=== PATIENT | male | born 1985 | race Caucasian/White ===

== ENCOUNTER 2016-12-15 14:41 | Emergency (ER) | payer OTHER ==
--- NOTE | 2016-12-15 14:43 | PDOC ---
History of Present Illness <Robyn Agarwal - Last Filed: 12/15/16 15:36> - General History Source: Patient, Family Exam Limitations: No Limitations - History of Present Illness Initial Comments: 12/15/16 16:32 CHIEF COMPLAINT: Left ankle injury just prior to arrival HISTORY OF PRESENT ILLNESS: 31-year-old man with no significant past medical history was playing softball today. Another player slid into his left ankle, causing severe pain and swelling. Patient came immediately to the emergency department. He denies any other injuries. REVIEW OF SYSTEMS: No fever or chills Positive left ankle pain No head or neck injury No right leg or ankle pain <Miguel Patino - Last Filed: 12/15/16 16:44> - General Chief Complaint: Injury Stated Complaint: LEFT ANKLE PAIN Time Seen by Provider: 12/15/16 14:43 Past History <Robyn Agarwal - Last Filed: 12/15/16 15:36> - Past Medical History Diabetes: No <Miguel Patino - Last Filed: 12/15/16 16:44> - Past Medical History Allergies/Adverse Reactions: Allergies Allergy/AdvReac Type Severity Reaction Status Date / Time No Known Allergies Allergy Unverified 12/15/16 14:42 Home Medications: Ambulatory Orders Naproxen [Naprosyn -] 375 mg PO Q12H PRN #30 tablet 12/15/16 Oxycodone HCl/Acetaminophen [Percocet 5-325 mg Tablet] 1 - 2 tab PO Q4H PRN #20 tablet MDD 12 12/15/16 *Physical Exam - Vital Signs Last Vital Signs Temp Pulse Resp BP Pulse Ox 97.6 F 75 16 136/80 100 12/15/16 14:42 12/15/16 14:42 12/15/16 14:42 12/15/16 14:42 12/15/16 14:42 <Robyn Agarwal - Last Filed: 12/15/16 15:36> - Physical Exam Comments: 12/15/16 16:33 GENERAL: The patient is awake, alert, and fully oriented, in no acute distress. HEAD: Normal with no signs of trauma. EYES: Pupils equal, round and reactive to light, extraocular movements intact, sclera anicteric, conjunctiva clear. EXTREMITIES: There is swelling and tenderness at the left ankle, both medial and lateral. Skin is intact. Pulses are normal. Capillary refill is less than 2 seconds. Sensation is intact throughout. There is some tenderness of the proximal midfoot. NEUROLOGICAL: Normal speech, normal gait. PSYCH: Normal mood, normal affect. SKIN: Warm, Dry, normal turgor, no rashes or lesions noted. <Miguel Patino - Last Filed: 12/15/16 16:44> Procedures - Splinting Splint Location: Left: Ankle (sugar tong and posterior short leg splint applied) Pre-Proc Neuro Vasc Exam: normal Hand-Made Type: orthoglass Splint Type: Yes: Sugar Tong, Short Leg Ronny Bandage: yes, 4", 6" <Miguel Patino S - Last Filed: 12/15/16 16:44> ED Treatment Course - Medications Given in the ED: ED Medications Discontinued Medications Generic Name Dose Route Start Last Admin Trade Name Freq PRN Reason Stop Dose Admin Naproxen 375 mg 12/15/16 14:44 12/15/16 14:51 Naprosyn - PO 12/15/16 14:45 375 mg ONCE ONE Administration <Robyn Agarwal - Last Filed: 12/15/16 15:36> Medical Decision Making - Medical Decision Making 12/15/16 15:[address] Burk at [phone], awaiting call back. <Robyn Agarwal - Last Filed: 12/15/16 15:36> - Medical Decision Making 12/15/16 16:35 Patient presents with left ankle injury, examination with swelling and bimalleolar tenderness. X-rays of the left ankle show a Adams B type fibula fracture at the level of the syndesmosis extending upwards on the lateral side. There is some widening of the mortise joint suggesting joint instability. X-rays reviewed by me and then by the radiologist. Impression: Adams B/C left ankle injury. Mortise joint appears unstable. Patient will likely need ORIF. Plan: Call placed orthopedic surgery on-call, Dr. Burk responded. He advised splinting, ice, elevation, consultation in his office on Saturday with surgery to be planned. <Miguel Patino - Last Filed: 12/15/16 16:44> *DC/Admit/Observation/Transfer <Robyn Agarwal - Last Filed: 12/15/16 15:36> - Discharge Dispostion Admit: No <Miguel Patino - Last Filed: 12/15/16 16:44> Diagnosis at time of Disposition: Closed left fibular fracture Qualifiers: Encounter type: initial encounter Fibula location: lateral malleolus Fracture alignment: displaced Qualified Code(s): S82.62XA - Displaced fracture of lateral malleolus of left fibula, initial encounter for closed fracture - Discharge Dispostion Disposition: HOME Condition at time of disposition: Stable - Prescriptions Prescriptions: Naproxen [Naprosyn -] 375 mg PO Q12H PRN #30 tablet PRN Reason: Pain Oxycodone HCl/Acetaminophen [Percocet 5-325 mg Tablet] 1 - 2 tab PO Q4H PRN #20 tablet MDD 12 PRN Reason: Pain - Referrals Referrals: Danny Burk MD [Staff Physician] - 2 Days - Patient Instructions Printed Discharge Instructions: DI for Ankle Fracture Additional Instructions: Today you were evaluated for a left ankle injury. The x-rays show a fracture. A splint has been applied. Keep the splint in place continuously. Keep the ankle elevated to the level of your heart or above at all times. You may only get up to use the bathroom and then should return to a position of rest with the ankle elevated. Apply ice packs every 2 hours over the area of the ankle for 30-45 minutes, during the day. Rest at night. Take Naprosyn 375 mg twice a day as needed for pain. Take Percocet if needed for severe pain. Follow-up with Dr. Zamarripa and [facility], orthopedic surgery, by calling their office on Saturday morning at 9 AM for your appointment time on Saturday. They will schedule your surgery at that time. Return to the emergency department for any severe or progressive symptoms. You may only get up to use the bathroom. Use crutches with no weight bearing on the ankle as the joint is unstable and the injury could worsen with weight on the foot.
[2016-12-15] MEDS ORDERED: NAPROXEN 375 MG TABLET (FP) PO ONE (14:44)
[2016-12-15] MEDS ORDERED: NAPROXEN 375 MG TABLET (FP) ONE (14:50)
[2016-12-15 15:02] VITALS: BP 136/80; PULSE 75; TEMP 97.6; BMI 28.1
[2016-12-15] MEDS ORDERED: OXYCODONE/APAP 5/325MG COMBO TABLET PO ONE (15:48)
[2016-12-15] MEDS ORDERED: OXYCODONE/APAP 5/325MG COMBO TABLET ONE (15:50)
== END 2016-12-15 17:23 | disposition home or self-care (01) ==
LOC: FER 14:41
PROC: 2W3RX1Z Immobilization of Left Lower Leg using Splint (ICD-10-PCS; principal; 2016-12-15)
DX: S82.62XA Displaced fracture of lateral malleolus of left fibula, initial encounter for closed fracture (principal); W50.0XXA Accidental hit or strike by another person, initial encounter; Y93.64 Activity, baseball; Y92.320 Baseball field as the place of occurrence of the external cause
CPT/HCPCS: 73610-TC-LT; 73630-TC-LT; 99281-25